=== PATIENT | female | born 1990 | race Caucasian/White ===

== ENCOUNTER 2017-11-15 15:13 | Emergency (ER) | payer OTHER ==
[~2017-11-15] VITALS: Ht 157.5 cm; Wt 80.7 kg
[~2017-11-15 15:13] MED LIST: ACETAMINOPHEN500 M2 PO; AMPICILLIN TRI500 MG PO; SYNTHROID150 MCG
[2017-11-15] MEDS ORDERED: PRENATABS FA T1 EACH (15:51)
[2017-11-15] MEDS ORDERED: SYNTHROID200 MCG (15:51)
== END 2017-11-15 22:02 | disposition home or self-care (01) ==
LOC: ER 15:13
DX: O26.891 Other specified pregnancy related conditions, first trimester (principal); K52.9 Noninfective gastroenteritis and colitis, unspecified; Z34.81 Encounter for supervision of other normal pregnancy, first trimester

== ENCOUNTER → 2018-03-24 12:55 | Outpatient (CLI) | payer OTHER ==
[~2018-03-24 12:55] MED LIST changes: +PRENATABS FA T1 EACH; +SYNTHROID200 MCG
== END | disposition home or self-care (01) ==
LOC: LAB 12:55
DX: Z34.80 Encounter for supervision of other normal pregnancy, unspecified trimester (principal)

== ENCOUNTER 2018-03-31 11:16 | Outpatient (CLI) | payer OTHER | END 2018-03-31 12:59 | disposition home or self-care (01) | LOC: LAB 11:16 | DX: Z34.80 Encounter for supervision of other normal pregnancy, unspecified trimester (principal) ==

== ENCOUNTER → 2020-02-27 | Outpatient (CLI) | payer OTHER | END | disposition home or self-care (01) | LOC: PRENATAL 09:45 | PROVIDERS: ATTEND Obstetrics & Gynecology Maternal & Fetal Medicine | DX: O35.0XX1 Maternal care for (suspected) central nervous system malformation in fetus, fetus 1 (principal); O99.89 Other specified diseases and conditions complicating pregnancy, childbirth and the puerperium; O35.3XX1 Maternal care for (suspected) damage to fetus from viral disease in mother, fetus 1; O98.512 Other viral diseases complicating pregnancy, second trimester; Z36.89 Encounter for other specified antenatal screening; Z3A.23 23 weeks gestation of pregnancy ==

== ENCOUNTER → 2020-03-30 | Outpatient (CLI) | payer OTHER | END | disposition home or self-care (01) | LOC: PRENATAL 10:00 | PROVIDERS: ATTEND Obstetrics & Gynecology Maternal & Fetal Medicine | DX: O26.843 Uterine size-date discrepancy, third trimester (principal); O35.0XX1 Maternal care for (suspected) central nervous system malformation in fetus, fetus 1; Z36.89 Encounter for other specified antenatal screening; Z3A.28 28 weeks gestation of pregnancy ==

== ENCOUNTER 2020-06-09 13:00 | Inpatient (IN) | payer OTHER ==
[~2020-06-09] VITALS: Ht 157.5 cm; Wt 93.0 kg
== END 2020-06-24 15:42 | disposition home or self-care (01) | DRG 807 ==
LOC: LDR 06-22 07:22 → OB/GYN 06-22 07:22
PROVIDERS: ADMIT Specialist; ATTEND Specialist
PROC: 10E0XZZ Delivery of Products of Conception, External Approach (ICD-10-PCS; principal; 2020-06-22)
PROC: 4A1HXFZ Monitoring of Products of Conception, Cardiac Rhythm, External Approach (ICD-10-PCS; 2020-06-22)
DX: O80 Encounter for full-term uncomplicated delivery (principal); Z37.0 Single live birth; Z3A.40 40 weeks gestation of pregnancy; Z20.828 Contact with and (suspected) exposure to other viral communicable diseases